=== PATIENT | male | born 1965 | race Caucasian/White ===

== ENCOUNTER 2016-09-05 10:06 | Emergency (ER) | payer MEDICAID ==
--- NOTE | 2016-09-05 10:49 | EDM.PDOC ---
ED HPI GENERAL MEDICAL PROBLEM - General Chief Complaint: Neuro Symptoms/Deficits Stated Complaint: HEAD Time Seen by Provider: 09/05/16 10:20 Source of Information: Reports: Patient History Limitations: Reports: No Limitations - History of Present Illness INITIAL COMMENTS - FREE TEXT/NARRATIVE: This 50 yo male patient reports to the ED with intermittent neuro symptoms and shortness of breath. The patient reports he had a traumatic slow bleed inside the right temporal area. The patient had surgery in June. The patient reports he started a new job and has been placed in some stressful situations over the past week and has had difficulties processing information (patient states his "brain locks up"). The patient has noticed some increased tenderness to the right temporal area (over the surgical suture line). The patient has also noticed some changes in his vision over the past 3 days. The patient reports he noticed some shortness of breath yesterday when going up and down steps. The patient reports that he does not have a primary care provider. The patient had surgery with Dr. Flor in [facility]. The patient reports he has another follow-up next week with Dr. Flor, but did not want to wait that long with his new symptoms. Onset: Gradual Duration: Intermittent Location: Reports: Head (right temporal), Chest (shoertness of breath) Quality: Reports: Dull Severity: Moderate Improves with: Reports: None Worsens with: Reports: None Context: Reports: Activity (stress at work leads to increased difficulties processing information) Associated Symptoms: Reports: Shortness of Breath, Other - Related Data Allergies Allergy/AdvReac Type Severity Reaction Status Date / Time No Known Allergies Allergy Verified 09/05/16 10:16 Home Meds: Home Meds . [No Known Home Meds] 09/05/16 [History] Past Medical History Musculoskeletal History: Reports: Fracture Other Neuro History: brain bleed - Past Surgical History Neurological Surgical History: Reports: Other (See Below) Other Neurological Surgeries/Procedures: brain bleed Musculoskeletal Surgical History: Reports: Other (See Below) Other Musculoskeletal Surgeries/Procedures:: arm surgery Social & Family History - Tobacco Use Smoking Status *Q: Current Every Day Smoker Years of Tobacco use: 23 Packs/Tins Daily: 1 - Caffeine Use Caffeine Use: Reports: Coffee Other Caffeine Use: 3 cups/day - Recreational Drug Use Recreational Drug Use: No ED ROS GENERAL - Review of Systems Review Of Systems: ROS reveals no pertinent complaints other than HPI. ED EXAM, GENERAL - Physical Exam Exam: See Below Exam Limited By: No Limitations General Appearance: Alert, WD/WN, Mild Distress Eye Exam: Bilateral Eye: EOMI, Normal Inspection, PERRL Ears: Normal External Exam, Normal Canal, Hearing Grossly Normal, Normal TMs Nose: Normal Inspection, Normal Mucosa, No Blood Throat/Mouth: Normal Inspection, Normal Lips, Normal Teeth, Normal Gums, Normal Oropharynx, Normal Voice, No Airway Compromise Head: Other Neck: Normal Inspection, Supple, Non-Tender, Full Range of Motion Respiratory/Chest: No Respiratory Distress, Lungs Clear, Normal Breath Sounds, No Accessory Muscle Use, Chest Non-Tender Cardiovascular: Normal Peripheral Pulses, Regular Rate, Rhythm, No Edema, No Gallop, No JVD, No Murmur, No Rub GI/Abdominal: Normal Bowel Sounds, Soft, Non-Tender, No Organomegaly, No Distention, No Abnormal Bruit, No Mass (Male) Exam: Deferred Rectal (Males) Exam: Deferred Back Exam: Normal Inspection, Full Range of Motion, NT Extremities: Normal Inspection, Normal Range of Motion, Non-Tender, Normal Capillary Refill, No Pedal Edema Neurological: Alert, Oriented, CN II-XII Intact, Normal Cognition, Normal Gait, Normal Reflexes, No Motor/Sensory Deficits Psychiatric: Normal Affect, Normal Mood Skin Exam: Warm, Dry, Intact, Normal Color, No Rash Lymphatic: No Adenopathy Course - Vital Signs Last Recorded V/S: Last Vital Signs Temp 36.3 C 09/05/16 10:26 Pulse 75 09/05/16 11:20 Resp 16 09/05/16 11:20 BP 104/72 09/05/16 11:20 Pulse Ox 97 09/05/16 11:20 - Orders/Labs/Meds Orders: Active Orders 24 hr Category Date Time Status EKG Documentation Completion [RC] URGENT Care 09/05/16 10:35 Ordered CULTURE BLOOD [BC] Stat Lab 09/05/16 10:35 Ordered Labs: Laboratory Tests 09/05/16 09/05/16 09/05/16 Range/Units 10:45 10:45 10:45 WBC 9.2 (5.0-10.0) 10^3/uL RBC 4.82 (4.6-6.2) 10^6/uL Hgb 14.9 (14.0-18.0) g/dL Hct 44.2 (40.0-54.0) % MCV 91.7 (80-100) fL MCH 30.9 (27.0-34.0) pg MCHC 33.7 (33.0-35.0) g/dL Plt Count 241 (150-450) 10^3/uL Neut % (Auto) 65.1 (42.2-75.2) % Lymph % (Auto) 27.0 (20.5-50.1) % Clare % (Auto) 5.6 (2-8) % Eos % (Auto) 2.0 (1.0-3.0) % Baso % (Auto) 0.3 (0.0-1.0) % Sodium 142 (135-145) mmol/L Potassium 3.6 (3.6-5.0) mmol/L Chloride 107 (101-111) mmol/L Carbon Dioxide 22.0 (21.0-31.0) mmol/L Anion Gap 16.6 BUN 14 (7-18) mg/dL Creatinine 1.0 (0.6-1.3) mg/dL Est Cr Clr Drug Dosing 92.26 mL/min Estimated GFR (MDRD) > 60 BUN/Creatinine Ratio 14.00 Glucose 100 (74-105) mg/dL Lactic Acid 2.9 H (0.5-2.2) mmol/L Calcium 9.6 (8.4-10.2) mg/dl Total Bilirubin 0.2 (0.2-1.0) mg/dL AST 20 (10-42) IU/L ALT 15 (10-60) IU/L Alkaline Phosphatase 72 (42-121) IU/L Troponin I (0.00-0.02) ng/ml Total Protein 7.4 (6.7-8.2) g/dl Albumin 4.0 (3.2-5.5) g/dl Globulin 3.4 Albumin/Globulin Ratio 1.18 // Range/Units 10:45 WBC (5.0-10.0) 10^3/uL RBC (4.6-6.2) 10^6/uL Hgb (14.0-18.0) g/dL Hct (40.0-54.0) % MCV (80-100) fL MCH (27.0-34.0) pg MCHC (33.0-35.0) g/dL Plt Count (150-450) 10^3/uL Neut % (Auto) (42.2-75.2) % Lymph % (Auto) (20.5-50.1) % Clare % (Auto) (2-8) % Eos % (Auto) (1.0-3.0) % Baso % (Auto) (0.0-1.0) % Sodium (135-145) mmol/L Potassium (3.6-5.0) mmol/L Chloride (101-111) mmol/L Carbon Dioxide (21.0-31.0) mmol/L Anion Gap BUN (7-18) mg/dL Creatinine (0.6-1.3) mg/dL Est Cr Clr Drug Dosing mL/min Estimated GFR (MDRD) BUN/Creatinine Ratio Glucose (74-105) mg/dL Lactic Acid (0.5-2.2) mmol/L Calcium (8.4-10.2) mg/dl Total Bilirubin (0.2-1.0) mg/dL AST (10-42) IU/L ALT (10-60) IU/L Alkaline Phosphatase (42-121) IU/L Troponin I < 0.02 (0.00-0.02) ng/ml Total Protein (6.7-8.2) g/dl Albumin (3.2-5.5) g/dl Globulin Albumin/Globulin Ratio Departure - Departure Time of Disposition: 12:12 Disposition: Home, Self-Care 01 Condition: Fair Clinical Impression: Neurological symptoms - Discharge Information Instructions: Post-Concussion Syndrome, [id number] Forms: ED Department Discharge Care Plan Goals: The patient was advised of the examination, lab, EKG, x-ray and CT results during the visit. The patient was encouraged to follow-up with Dr. Flor. The x -ray and CT were pushed to the [facility]. If the patient has any additional symptoms or concerns, the patient should follow-up with his primary care facility, with Dr. Flor or return to the emergency department. - My Orders Last 24 Hours: My Active Orders 09/05/16 10:35 EKG Documentation Completion [RC] URGENT CULTURE BLOOD [BC] Stat - Assessment/Plan Last 24 Hours: My Active Orders 09/05/16 10:35 EKG Documentation Completion [RC] URGENT CULTURE BLOOD [BC] Stat
[2016-09-05 11:13] LABS: CHLORIDE,CL 107 mmol/L (101-111); SODIUM,NA 142 mmol/L (135-145)
[2016-09-05 11:21] VITALS: BP 104/72
--- NOTE | 2016-09-05 11:50 | CR ---
CLINICAL HISTORY: 50-year-old male with dyspnea on exertion. INTERPRETATION: Right-sided aortic arch. Normal cardiac silhouette without alveolar edema or depende nt effusion. No lung mass, hilar lymphadenopathy or focal lobar pneumonia. No atelectasis/collapse. CONCLUSION: No acute cardiopulmonary abnormality. Right-sided aortic arch.
--- NOTE | 2016-09-05 11:51 | CT ---
CLINICAL HISTORY: 50-year-old male with shortness of breath on exertion. SCAN TECHNIQUE: Volume acquisition of data from an emergency unenhanced CT scan of the head and brai n obtained with the patient lying supine on the Siemens multislice CT scanner [place], [place]. All data archived in the PACS system for storage, reformatting and study. INTERPRETATION: Evidence of previous right craniectomy with prominent underlying dural membrane. Generalized atrophy. No supratentorial or posterior fossa mass lesion. No hydrocephalus. Midline pin eal and symmetric choroid plexus calcifications. Asymmetric decreased attenuation temporal lobe on the left suggesting ischemia but no other focal ar eas of ischemic infarct or signs of acute intracerebral/intraventricular/subarachnoid bleed. No acute extracerebral/intracranial epidural or subdural hematoma. Uniformly thick bony calvarium without sign of skull fracture. Symmetric clear pneumatization of the mastoid/paranasal sinuses.
--- NOTE | 2016-09-06 14:26 | EKG ---
09/05/2016 - JUDITH STONER ELSA - I reviewed the EKG and agree with the machine's reading. [facility] /[id number]
== END 2016-09-05 12:25 | disposition home or self-care (01) ==
LOC: DL.ED 10:06
DX: F09 Unspecified mental disorder due to known physiological condition (principal); H53.9 Unspecified visual disturbance; G89.18 Other acute postprocedural pain; R06.02 Shortness of breath; Z87.820 Personal history of traumatic brain injury; F17.210 Nicotine dependence, cigarettes, uncomplicated
CPT/HCPCS: 36415; 70450; 71020; 80053; 83605; 84484; 85025; 87040; 93005; 99284